=== PATIENT | female | born 1970 | race Caucasian/White ===

== ENCOUNTER 2022-08-26 19:19 | Emergency (ER) | payer BC, SELFPAY ==
[2022-08-26] VITALS (7 sets, daily range): BP systolic 115–120; BP diastolic 60–62; PULSE 67–83; RESP 16; TEMP 36.9; O2SAT 94–99; BMI 34.1
--- NOTE | 2022-08-26 19:38 | DI.US.S_ITS ---
PROCEDURE: US PERIPH VENOUS LOW EXTREM LT INDICATIONS: left calf pain TECHNIQUE: Real-time imaging, as well as color and pulse Doppler interrogation, were performed of the lower extremity deep veins from the inguinal ligament to the popliteal fossa. COMPARISON: None. FINDINGS: The common femoral, femoral and popliteal veins are normally compressible, and free of intraluminal thrombus. Color and pulse Doppler demonstrate normal phasic intraluminal flow. There is normal augmentation response to distal compression maneuver. There is nonocclusive filling defect within 1 of the peroneal veins in the proximal to mid calf. IMPRESSION: 1. Partial nonocclusive thrombus within a peroneal vein in the calf. Findings reported to Dr. Rodriguez at the conclusion of the exam by the nuclear medicine pet ct technologist. Dictated by: Pepe Sexton M.D. on 08/26/2022 at 20:35 Approved by: Pepe Sexton M.D. on 08/26/2022 at 20:37
--- NOTE | 2022-08-26 20:58 | ED.EXTPRO ---
HPI - Extremity Problem General Chief complaint: Extremity Problem,Nontraumatic Stated complaint: right calf pain / sent from [facility] Time Seen by Provider: 08/26/22 19:37 Source: patient Mode of arrival: Family Vehicle History of Present Illness HPI Narrative: Patient is a 52-year-old female. She was sent from the walk-in clinic for evaluation of left calf discomfort. The stated complaint does stay right calf pain however her discomfort is in her left calf. Her left calf/lower extremity was ultrasounded. She states that she was sent here for concerns about a DVT. She states that today she was walking down her driveway which has a slight declined. She states that she would a sudden onset of discomfort in the back of her left calf. She went to the walk-in clinic. They were concerned about a palpable mass in this area so they sent her to the emergency department for evaluation of a DVT. She is no skin changes over the area. She has been able to ambulate but it has been quite uncomfortable for her. She states it hurts for her to flex her foot up. She reports no chest pain. No shortness of breath. No prior history of blood clots. Related Data Previous Rx's Medication Instructions Recorded apixaban 5 mg tablet (Eliquis) 5 mg PO BID #70 tabs 08/26/22 Allergies Allergy/AdvReac Type Severity Reaction Status Date / Time iodine AdvReac Mild Verified 08/26/22 18:21 Review of Systems Constitutional Constitutional: Reports system reviewed and no additional complaints, except as documented Cardiovascular Cardiovascular: Reports system reviewed and no additional complaints, except as documented Respiratory Respiratory: Reports system reviewed and no additional complaints, except as documented Musculoskeletal Musculoskeletal: Reports system reviewed and no additional complaints, except as documented Integumentary/Breasts Skin/Breast: Reports system reviewed and no additional complaints, except as documented Neurologic Neurologic: Reports system reviewed and no additional complaints, except as documented Hematologic/Lymphatic On Anticoagulants: No Patient History Social History Smoking Status: Unknown if ever smoked Smoking Status: Unknown if ever smoked Exam Initial Vital Signs Initial Vital Signs: Vital Signs Pulse Rate 83 08/26/22 19:17 Pulse Oximetry 99 08/26/22 19:17 Const General: cooperative, comfortable and No ill appearing HENMT Head: normal to inspection and normocephalic Resp Effort & Inspection: normal respiratory effort Cardio Rate: regular rate Skin General: no rashes or lesions noted Neuro General: patient alert, patient awake and moves all extremities Extrem Other: Discomfort to palpation of the medial right calf muscle. Psych Appearance: grossly normal Course Orders Ordered: ED Orders 08/26/22 19:38 US periph venous low extrem lt Stat 08/26/22 21:11 Basic Metabolic Panel Stat Complete Blood Count AUTO DIFF Stat PTT Partial Thromboplastin Russel Stat Prothrombin Time INR Stat Discontinued Medications Apixaban (Apixaban 5 Mg Tablet) 10 mg PO NOW ONE Stop: 08/26/22 21:08 Last Admin: 08/26/22 21:22 Dose: 10 mg Documented By: HUNG Vital Signs Vital signs: Vital Signs - 8 hr 08/26/22 19:22 08/26/22 19:17 08/26/22 19:19 Temperature 98.5 F Pulse Rate 75 83 78 Respiratory Rate 16 Blood Pressure 120/60 Pulse Oximetry 99 99 99 Oxygen Delivery Method Room Air 08/26/22 19:19 08/26/22 19:30 08/26/22 21:12 Temperature Pulse Rate 74 Respiratory Rate Blood Pressure 120/60 Pulse Oximetry 98 94 Oxygen Delivery Method 08/26/22 21:30 08/26/22 21:43 08/26/22 21:43 Temperature Pulse Rate 67 69 Respiratory Rate Blood Pressure 115/62 Pulse Oximetry 98 98 Oxygen Delivery Method MDM - Extremity (Nontraumatic) Lab Data 08/26/22 21:11 08/26/22 21:11 Labs: Lab Results 08/26/22 08/26/22 08/26/22 Range/Units 21:11 21:11 21:11 WBC 8.7 (4.5-11.0) X10^3/uL RBC 4.68 (4.0-5.2) X10^6/uL Hgb 14.0 (12.0-16.0) g/dL Hct 41.0 (36-46) % MCV 87.6 (80-100) fL MCH 29.8 (26-34) PG MCHC 34.0 (30-36) % RDW 12.8 (11.6-14.8) % Plt Count 276 (150-400) X10^3/uL Neut % (Auto) 53.3 (50-75) % Lymph % (Auto) 33.0 (25-40) % [place] % (Auto) 9.0 (3-14) % Eos % (Auto) 3.5 (2-4) % Baso % (Auto) 1.2 (0-2) % Neut # (Auto) 4600 (3744-3939) /uL Lymph # (Auto) 2900 (3455-3675) /uL [place] # (Auto) 800 (0-900) /uL Eos # (Auto) 300 (0-450) /uL Baso # (Auto) 100 (0-100) /uL PT 11.2 (10.1-12.7) SECONDS INR 1.0 (0.9-1.3) APTT 26 (26-36) SECONDS Sodium 141 (137-145) mmol/L Potassium 3.7 (3.4-5.1) mmol/L Chloride 106 (98-107) mmol/L Carbon Dioxide 28 (22-32) mmol/L BUN 11 (7-17) mg/dL Creatinine 0.82 (0.52-1.04) mg/dL Estimated GFR > 60 (>60) mL/min BUN/Creatinine Ratio 13.4 (6-22) Glucose 86 (70-100) mg/dL Calcium 9.1 (8.4-10.2) mg/dL Imaging Data US - DVT: Radiologist's Impression: PROCEDURE:? US PERIPH VENOUS LOW EXTREM LT ? INDICATIONS:? left calf pain ? TECHNIQUE:? Real-time imaging, as well as color and pulse Doppler interrogation, were performed of the lower extremity deep veins from the inguinal ligament to the popliteal fossa.? ? COMPARISON:? None. ? FINDINGS:? The common femoral, femoral and popliteal veins are normally compressible, and free of intraluminal thrombus.? Color and pulse Doppler demonstrate normal phasic intraluminal flow.? There is normal augmentation response to distal compression maneuver. ? ? There is nonocclusive filling defect within 1 of the peroneal veins in the proximal to mid calf. ? IMPRESSION:? ? 1. Partial nonocclusive thrombus within a peroneal vein in the calf. ? Findings reported to Dr. Rodriguez at the conclusion of the exam by the echocardiography radiology technologist. MDM Narrative Medical decision making narrative: Patient does have a nonocclusive left distal vein calf clot. Given her presentation today where she was walking down an incline and had a sudden onset of discomfort I do suspect that this is an incidental finding. I feel that the injury that she sustained today was most likely a strain of the calf muscle. I have low suspicion that she is torn this muscle. Despite this the fact that we have found a clot in her lower extremity we do need to treat this. We will start her on Eliquis. She has no signs or symptoms of a pulmonary embolism. She was given the 1st dose of her medications here in the emergency department. I did advise that she contact her primary doctor for a follow-up to discuss further evaluation and treatment. She was given return precautions. She expressed understanding and agreement. Discharge Plan Departure Patient Disposition: Home Clinical Impression: Deep vein thrombosis of lower extremity, Strain of left calf muscle Instructions: Calf Muscle Strain, DI for Deep Vein Thrombosis Activity Restrictions/Additional Instructions: Like we discussed there was a finding of a blood clot in your left calf. I do have some suspicion that this was an incidental finding and not necessarily what caused your pain that you presented with today. Despite this we should treat you with blood thinners. The prescription was sent to [facility]. I recommend that you take it as directed. Tomorrow contact your primary doctor for a follow-up. Return to the emergency department for new or worsening symptoms. Prescriptions: New Eliquis 5 mg tablet 5 mg PO BID Qty: 70 0RF Rx Instructions: 2T PO BID for 7D then 1T PO BID after Referrals: Miscellaneous,[facility] [Primary Care Provider] - Stand Alone Forms: Patient Portal/API
[2022-08-26] MEDS: APIXABAN 5 MG TABLET 10 MG PO (21:22)
[2022-08-26 21:25] LABS: Add Manual Diff / Slide Review NO; Basophils Absolute Auto 100 /uL (0-100); Basophils Percent Auto 1.2 % (0-2); Eosinophils Absolute Auto 300 /uL (0-450); Eosinophils Percent Auto 3.5 % (2-4); Lymphocytes Absolute Auto 2900 /uL (1100-4500); Mean Corpuscular Hemoglobin 29.8 PG (26-34); Mean Corpuscular Volume 87.6 fL (80-100); Monocytes Absolute Auto 800 /uL (0-900); Neutrophils Absolute Auto 4600 /uL (1500-7000); Neutrophils Percent Auto 53.3 % (50-75); Platelet Count 276 X10^3/uL (150-400); Red Blood Cell Count 4.68 X10^6/uL (4.0-5.2); Red Cell Distribution Width 12.8 % (11.6-14.8); White Blood Cell Count 8.7 X10^3/uL (4.5-11.0)
[2022-08-26 21:27] LABS: Prothrombin Time 11.2 SECONDS (10.1-12.7)
[2022-08-26 21:30] LABS: BUN Creatinine Ratio 13.4 (6-22); Blood Urea Nitrogen 11 mg/dL (7-17); Calcium 9.1 mg/dL (8.4-10.2); Carbon Dioxide 28 mmol/L (22-32); Chloride 106 mmol/L (98-107); Estimated Glomerular Filt Rate > 60 mL/min (>60); Glucose 86 mg/dL (70-100); HEMOLYSIS < 15 (0-50); PTT Partial Thromboplastin Tim 26 SECONDS (26-36); Potassium 3.7 mmol/L (3.4-5.1); Sodium 141 mmol/L (137-145)
== END 2022-08-26 21:50 | disposition home or self-care (01) ==
PROVIDERS: Emergency Provider Emergency Medicine
DX: I82.402 Acute embolism and thrombosis of unspecified deep veins of left lower extremity (principal); S86.912A Strain of unspecified muscle(s) and tendon(s) at lower leg level, left leg, initial encounter; Z79.01 Long term (current) use of anticoagulants
CPT/HCPCS: 80048; 85025; 85610; 85730; 93971; 99283; 99284

== ENCOUNTER → 2023-05-10 11:02 | Outpatient (CLI) | payer BC, SELFPAY ==
[2023-05-10 11:51] LABS: Influenza A - CEPHEID Flu A NEGATIVE (NEGATIVE); Influenza B - CEPHEID Flu B NEGATIVE (NEGATIVE); Respiratory Syncytial Virus Negative (Negative)
[2023-05-10 11:55] LABS: COVID-19 CEPHEID 4-PLEX PCR Negative (Negative)
== END ==
PROVIDERS: Visit Provider Registered Nurse
DX: R05.1 Acute cough (principal)
CPT/HCPCS: 0241U

== ENCOUNTER 2025-02-16 11:55 | Day surgery (SDC) | payer BC, SELFPAY ==
[2025-02-09 08:48] VITALS: BMI 34.1
[2025-02-16] MEDS: LACTATED RINGERS 1,000 ML 42 ML IV (12:38)
[2025-02-16] MEDS: ACETAMINOPHEN 325 MG TABLET 975 MG PO (12:39)
[2025-02-16 12:47] VITALS: BP 112/69; PULSE 74; RESP 18; TEMP 36.6; O2SAT 98
--- NOTE | 2025-02-16 13:42 | PM.PREOP ---
Pre-operative Note COVID-19 COVID-19 status: Not tested Interval Note History & Physical reviewed/Exam performed by Physician: Yes Changes to H&P: No ASA Class (for procedural sedation): II
[2025-02-16] MEDS: SCOPOLAMINE 1 PATCH TOP (14:11)
--- NOTE | 2025-02-16 15:10 | SUR.OPER ---
Supine on padded OR bed, head on pillow, arms secured on padded arm boards at <90 degrees abduction, legs uncrossed, safety belt at thigh, tape over blanket over lower legs.
--- NOTE | 2025-02-16 15:13 | P.OP_ITS ---
Operative Date/Time/Diagnoses Date of procedure: 02/16/25 Time of procedure: 15:13 Pre-op diagnosis: Epigastric ventral incisional hernia Post-op diagnosis: same Procedure & Clinicians Procedure: Open ventral hernia repair with mesh Same procedure(s) as scheduled: Yes Surgeon: Molina Proctor Assisted?: Yes [employer] Tester: Harvinder Porter Anesthesia Type: General Operative Notes Findings: 1 cm defect above the umbilicus Applied: none Estimated Blood Loss (mL): 5 Procedure in detail: Ancef was administered. The patient was brought to the operating room, placed on the table in the supine position and general endotracheal anesthesia was induced. The abdomen was prepped and draped in the usual fashion. A time-out was performed. A 5 cm incision was made above the umbilicus. Dissection was carried down to the hernia which appeared to contain only fat. The fat was transected. The hernia was freed from the fascial ring and the peritoneal cavity was entered. There was no bowel or omentum adherent to the sac. The facial defect was about 1 cm. The fascia was then closed with two interrupted 0 Ethibond sutures. The subcutaneous adipose tissue was cleared off of the anterior sheath circumferentially about 2 cm in each direction. A piece of polypropylene mesh was trimmed to fit over the fascial closure and secured with Tisseel. Once the Tisseel was dried the subcutaneous adipose tissue was closed with interrupted 3-0 Vicryl sutures. The skin was closed with multiple interrupted 3-0 Vicryl dermal sutures followed by a running 4 Monocryl subcuticular closure. Steri-Strips were applied and an abdominal binder was applied. Harvinder PETERS provided assistance with exposure, retraction and closure of incisions. Complications: none Post-operative Condition: stable Disposition: PACU
[2025-02-16 15:28] VITALS: BP 119/59; PULSE 93; RESP 15; TEMP 36.1; O2SAT 96
[2025-02-16] MEDS: ONDANSETRON 4 MG/2 ML INJ IV (15:33)
[2025-02-16] MEDS: KETOROLAC 30 MG/ML VIAL 15 MG IV (15:34)
[2025-02-16 15:38] VITALS: BP 114/65; PULSE 81; RESP 15; TEMP 36.1; O2SAT 99
== END 2025-02-16 16:19 | disposition home or self-care (01) ==
PROVIDERS: PCP Nurse Practitioner Family; Referring Provider Surgery; Visit Provider Surgery
PROC: (CPT 49591; principal; 2025-02-16 15:15)
DX: K43.6 Other and unspecified ventral hernia with obstruction, without gangrene (principal); Z87.891 Personal history of nicotine dependence
CPT/HCPCS: 49591; 82962; C1781; C9250; J0330; J0689; J1100; J1885; J2250; J2405; J2704; J3010; J7120